=== PATIENT | male | born 1990 | race Caucasian/White ===

== ENCOUNTER 2019-06-23 12:04 | Emergency (ER) | payer BC, OTHER ==
[~2019-06-23] VITALS: Ht 177.8 cm; Wt 111.8 kg
[2019-06-23] MEDS ORDERED: NORCO, ANEXSIA 5/325MG TABLET (HYDROcodone/ACETAMINOPHEN) PO ONE (12:30)
[2019-06-23 12:47] LABS: APPEARANCE, URINE CLEAR (CLEAR); BACTERIA, URINE AUTO NEGATIVE (NEGATIVE); BILIRUBIN, URINE AUTO NEGATIVE (NEGATIVE); BLOOD, URINE BLOOD NEGATIVE (NEGATIVE); COLOR, URINE YELLOW (YELLOW); GLUCOSE, URINE (UA) AUTO NEGATIVE (NEGATIVE); KETONE, URINE AUTO NEGATIVE (NEGATIVE); LEUKOCYTE ESTERASE, URINE AUTO NEGATIVE (NEGATIVE); MUCUS, URINE SMALL (NEGATIVE); NITRITE, URINE AUTO NEGATIVE (NEGATIVE); PROTEIN, URINE AUTO NEGATIVE (NEGATIVE); RBC, URINE AUTO 3 /HPF (0-3); SPECIFIC GRAVITY URINE AUTO 1.025 (1.002-1.035); SQUAMOUS EPITHELIAL CELL UR AU 0 /HPF (0-6); UROBILINOGEN, URINE AUTO 0.2 mg/dL (0.0-2.0); WBC, URINE AUTO 1 /HPF (0-3)
--- NOTE | 2019-06-23 13:27 | REP ---
Clinical: Prior vasectomy. Left testicular pain. Technique: Scott scale and color Doppler evaluation using linear and curved array transducer with color Doppler evaluation. Findings: The bilateral testicles and right epididymis are normal in contour, size, echogenicity, vascularity and overall appearance. There is no evidence for intratesticular mass lesion, infectious/inflammatory process, with torsion. No obvious hydroceles or varicoceles are identified. The left epididymis is heterogeneous, mildly prominent and hypervascular suggesting epididymitis. There also appears to be a fat containing left inguinal hernia. Clinical correlation is recommended. Right testicle measures 5.7 x 3.4 x 3.4 cm cm. Left testicle measures 5.2 x 3.3 x 3.7 cm cm. Impression: 1. Left epididymitis suggested. 2. Fat containing left inguinal hernia. Electronically Signed by Bryant Dias MD 06/23/2019 01:19 P
[2019-06-23] MEDS ORDERED: LEVA750T7 PO (13:45)
[2019-06-23 13:57] VITALS: BP 127/44
== END 2019-06-23 14:01 | disposition home or self-care (01) ==
LOC: M ED 12:04
DX: N45.3 Epididymo-orchitis (principal); K40.90 Unilateral inguinal hernia, without obstruction or gangrene, not specified as recurrent; Z98.52 Vasectomy status; Z88.0 Allergy status to penicillin; Z88.1 Allergy status to other antibiotic agents

== ENCOUNTER 2024-04-01 09:42 | Emergency (ER) | payer OTHER, BC ==
[~2024-04-01] VITALS: Ht 177.8 cm; Wt 108.7 kg
[~2024-04-01 09:42] MED LIST: LEVA750T7 PO
[2024-04-01 12:42] VITALS: BP 133/72; TEMP 98.5; O2SAT 100
== END 2024-04-01 12:51 | disposition home or self-care (01) ==
LOC: M ED 09:42
DX: S60.222A Contusion of left hand, initial encounter (principal); W27.8XXA Contact with other nonpowered hand tool, initial encounter; Y92.9 Unspecified place or not applicable; Y93.89 Activity, other specified; Y99.0 Civilian activity done for income or pay; Z88.0 Allergy status to penicillin; Z88.1 Allergy status to other antibiotic agents